=== PATIENT | male | born 1950 | race Caucasian/White ===

== ENCOUNTER 2017-02-11 10:41 | Emergency (ER) | payer MEDICARE, OTHER ==
[2017-02-11 10:46] VITALS: TEMP 97.5; BMI 30.7
--- NOTE | 2017-02-11 11:42 | PDOC ---
History of Present Illness - General Chief Complaint: Pain Stated Complaint: LT SIDE PAIN Time Seen by Provider: 02/11/17 11:42 - History of Present Illness Initial Comments: 66 year old male with CAD (recent stent placement in 07/2016 at [facility] on ASA and Plavix) sent from Dr. Olivarez's office for further evaluation of possible left flank bruising concerning for internal hemorrhage. The patient's primary complaint is of some slight back pain on the left side that he occasionally feels slightly more posterior. The pain began after rising from a seated position a few weeks prior. The pain is non radiating and worsens with position change or turning to his left. He admits to relief with Aleve. At his visit with Dr. Olivarez today he was noted to have some possible bruising to the left flank which raised concern for retroperitoneal bleeding and so he was referred to the emergency department. He does admit to some "ants crawling" sensation in his chest that is not exertional, pleuritic, radiating, copresenting with sob, or copresenting with diaphoresis. 02/11/17 15:48 Past History - Past Medical History Allergies/Adverse Reactions: Allergies Allergy/AdvReac Type Severity Reaction Status Date / Time No Known Allergies Allergy Verified 02/11/17 10:43 Home Medications: Ambulatory Orders Aspirin [ASA -] 81 mg PO DAILY 02/11/17 Clopidogrel Bisulfate [Plavix -] 75 mg PO DAILY 02/11/17 Tamsulosin HCl 0.4 mg PO DAILY 02/11/17 Asthma: No Diabetes: No HTN: No - Surgical History Cardiac Surgery: Yes - Suicide/Smoking/Psychosocial Hx Smoking History: Never smoked Hx Alcohol Use: No Substance Use Type: None Review of Systems - Review of Systems Constitutional: No: Chills, Diaphoresis, Fever, Loss of Appetite HEENTM: No: Blurred Vision Respiratory: No: Shortness of Breath Cardiac (ROS): No: Chest Pain, Irregular Heart Rate ABD/GI: No: Constipated, Diarrhea, Nausea, Vomiting : No: Burning, Dysuria, Discharge Musculoskeletal: Yes: Back Pain Neurological: No: Headache, Numbness *Physical Exam - Vital Signs Last Vital Signs Temp Pulse Resp BP Pulse Ox 97.5 F L 58 L 18 136/86 99 02/11/17 10:44 02/11/17 10:44 02/11/17 10:44 02/11/17 10:44 02/11/17 10:44 - Physical Exam General Appearance: Yes: Nourished, Appropriately Dressed. No: Apparent Distress HEENT: positive: EOMI, Normal Voice Neck: positive: Trachea midline, Normal Thyroid, Supple. negative: Tender, Rigid Respiratory/Chest: positive: Lungs Clear, Normal Breath Sounds. negative: Chest Tender, Respiratory Distress, Accessory Muscle Use Cardiovascular: positive: Regular Rhythm, Regular Rate, S1, S2. negative: Murmur Gastrointestinal/Abdominal: positive: Normal Bowel Sounds, Flat, Soft. negative : Tender Musculoskeletal: positive: Normal Inspection Extremity: positive: Normal Capillary Refill, Normal Inspection, Normal Range of Motion Integumentary: positive: Dry, Warm, Ecchymosis (Two small healing very faint echymosses on his anterior superior abdomen.). negative: Normal Color Neurologic: positive: pen maker II-XII NML intact, Fully Oriented, Alert, Normal Mood/ Affect, Normal Response, Motor Strength 5/5 Heart Score/ECG Review - ECG Intrepretation Comment:: Sinus Gaurang at 52 beats per minute without previous ekg for comparison. 02/12/17 18:16 ED Treatment Course - LABORATORY CBC & Chemistry Diagram: 02/11/17 12:10 02/11/17 12:10 Medical Decision Making - Medical Decision Making 66 year old male with nonspecific left flank pain complaint without urinary symptoms and benign abdominal exam. Patient was sent for concern for intrabdominal bleed given he was on dual antiplatelet therapy. EKG, troponins, and abdominal CTA do not show any bleed or vascular pathology (i.e. anyeurism or dissection) so this is most likely a musculoskeletal pathology. Pain improved on high dose Tylenol. 02/12/17 18:16 *DC/Admit/Observation/Transfer Diagnosis at time of Disposition: Back strain Qualifiers: Encounter type: initial encounter Qualified Code(s): S39.012A - Strain of muscle, fascia and tendon of lower back, initial encounter CAD (coronary artery disease) Qualifiers: Coronary Disease-Associated Artery/Lesion type: unspecified vessel or lesion type [place] vs. transplanted heart: [place] heart Associated angina: without angina Qualified Code(s): I25.10 - Atherosclerotic heart disease of [place] coronary artery without angina pectoris - Discharge Dispostion Disposition: HOME Condition at time of disposition: Stable - Referrals Referrals: Gabino Olivarez MD [Staff Physician] - Rupesh Stratton MD [Staff Physician] - Isma Cartagena [Primary Care Provider] - - Patient Instructions Printed Discharge Instructions: DI for Back Strain or Sprain Additional Instructions: Activity as tolerated, avoid heavy lifting and bedrest. Stay hydrated. Tylenol 1000 mg every 8 hours as needed for pain. Blood tests and a CT scan performed today showed no acute abnormalities. We spoke to Dr. Stratton and you should follow up in the office regarding your chest complaints. Call today to schedule an appointment as soon as possible, they are expecting to see you. Continue your medications as previously prescribed by your physician. You should follow up with your primary doctor and Dr. Olivarez as soon as possible regarding today's emergency department visit. Return to the emergency department for any new or concerning symptoms, particularly persistent or worsening chest pain or shortness of breath, increased bruising or abdominal pain, intolerable back pain or leg weakness or bowel/bladder issues.
[2017-02-11 12:18] LABS: BASOPHIL 0.6 % (0-2.0); EOSINOPHIL 2.2 % (0-4.5); MCH 30.8 pg (25.7-33.7); MCHC 34.9 g/dl (32.0-35.9); MEAN CELL VOLUME 88.4 fl (80-96); MEAN PLT VOLUME 9.2 fl (7.5-11.1); PLATELET COUNT 150 K/MM3 (134-434); RDW 13.3 % (11.9-15.9); WHITE BLOOD COUNT 6.3 K/mm3 (4.0-10.0)
[2017-02-11 12:44] LABS: INR 0.98 (0.82-1.09); PROTHROMBIN TIME (PATIENT) 11.1 SEC (9.98-11.88)
[2017-02-11 12:52] LABS: ALBUMIN 4.2 g/dl (3.4-5.0); ANION GAP 5 (8-16); BILIRUBIN,TOTAL 0.5 mg/dL (0.2-1.0); CALCIUM 8.8 mg/dL (8.5-10.1); CO2 30 mmol/L (21-32); CPK 99 IU/L (39-308); CREATININE 0.7 mg/dL (0.7-1.3); GLUCOSE,RANDOM 90 mg/dL (74-106); MAGNESIUM 2.6 mg/dL (1.8-2.4); SGOT/AST 18 U/L (15-37); SGPT/ALT 31 U/L (12-78)
[2017-02-11 12:55] LABS: ALK PHOS 124 U/L (45-117); TROPONIN I < 0.02 ng/ml (0.00-0.05)
--- NOTE | 2017-02-11 14:01 | PDOC ---
Attending Attestation - Resident Resident Name: TawanaDonovan - ED Attending Attestation I have performed the following: I have examined & evaluated the patient, The case was reviewed & discussed with the resident, I agree w/resident's findings & plan, Exceptions are as noted - HPI HPI: 02/11/17 13:56 66-year-old male with cardiac history on aspirin and Plavix sent from Dr. Olivarez's office for further evaluation of possible left flank bruising. Patient states he was getting up from a seated position a few weeks ago, felt a twinge in his back, and since then has had some discomfort in his left mid back region worse with positional changes, not associated with any GI or pathology. He was taking Aleve with relief, was seen by Dr. Olivarez today and was noted to have some possible bruising to the left flank which raised concern for retroperitoneal bleeding and so he was referred to the emergency department. Patient denies any lightheadedness or syncope, denies any bloody stool or urine , feels quite well. On review of systems, he does note some nonspecific "ants crawling" sensation in his chest, not associated with exertion or SOB. s/p cath with stent placement in July. currently otherwise feels well, asx at the moment. - Physicial Exam PE: 02/11/17 13:59 Vital signs normal, hemodynamically stable. Exam as noted and normal, no bruising appreciated, slight left mid back/CVA discomfort to palpation, abdomen is otherwise benign. Neurologically intact Regular rate, no murmurs, lungs clear - Medical Decision Making 02/11/17 14:00 Patient seen and evaluated with the resident. I agree with the overall evaluation, assessment, and management with the following summary of visit: 66-year-old male with cardiac history on aspirin and Plavix sent by Dr. Olivarez for further evaluation of possible left back bruising, though hemodynamically stable without significant history of trauma. Low suspicion for GI or pathology, we'll rule out any soft tissue hematoma or retroperitoneal bleeding. Patient with nonspecific cardiopulmonary complaints, atypical for ACS but recently status post stents. We'll do cardiac workup with EKG and troponin and chest x-ray, discuss disposition with patient's renderer. CT of the abdomen and pelvis with contrast to rule out any soft tissue or retroperitoneal bleeding Reassess 02/11/17 15:46 labs wnl, trop negative. CTAP without acute pathology. As outlined, presentation seemed more consistent with muscle strain, neuro intact. Will discuss vague chest sxs with Dr. Carlos, then dispo accordingly. 02/11/17 15:[address] Stratton, who knows the patient. pt had L main occlusion. Agrees that with nonspecific sxs and negative workup, can f/u in office. Pt can call and schedule an appt this week. CTAP without acute pathology, consistent with our clinical suspicion. Likely muscle strain, agrees with d/c plan. Discharge Disposition - Diagnosis Back strain Qualifiers: Encounter type: initial encounter Qualified Code(s): S39.012A - Strain of muscle, fascia and tendon of lower back, initial encounter; S39.012A - Strain of muscle, fascia and tendon of lower back, initial encounter Coronary artery disease Qualifiers: Coronary Disease-Associated Artery/Lesion type: unspecified vessel or lesion type [place] vs. transplanted heart: [place] heart Associated angina: without angina Qualified Code(s): I25.10 - Atherosclerotic heart disease of [place] coronary artery without angina pectoris; I25.10 - Atherosclerotic heart disease of [place] coronary artery without angina pectoris; I25.10 - Atherosclerotic heart disease of [place] coronary artery without angina pectoris - Discharge Dispostion Disposition: HOME Condition at time of disposition: Stable - Referrals Referrals: Isma Cartagena [Primary Care Provider] - Rupesh Stratton MD [Staff Physician] - Gabino Olivarez MD [Staff Physician] - - Patient Instructions Printed Discharge Instructions: DI for Back Strain or Sprain Additional Instructions: Activity as tolerated, avoid heavy lifting and bedrest. Stay hydrated. Tylenol 1000 mg every 8 hours as needed for pain. Blood tests and a CT scan performed today showed no acute abnormalities. We spoke to Dr. Stratton and you should follow up in the office regarding your chest complaints. Call today to schedule an appointment as soon as possible, they are expecting to see you. Continue your medications as previously prescribed by your physician. You should follow up with your primary doctor and Dr. Olivarez as soon as possible regarding today's emergency department visit. Return to the emergency department for any new or concerning symptoms, particularly persistent or worsening chest pain or shortness of breath, increased bruising or abdominal pain, intolerable back pain or leg weakness or bowel/bladder issues. Heart Score/ECG Review #1 ECG reviewed & interpreted by me at: 12:10 General ECG Interpretation: Sinus Rhythm, Normal Rate (52), Normal Intervals ( qtc 386), No acute ischemic changes
--- NOTE | 2017-02-11 14:38 | EKG ---
Test Reason : Blood Pressure : / mmHG Vent. Rate : 052 BPM Atrial Rate : 052 BPM P-R Int : 180 ms QRS Dur : 098 ms QT Int : 416 ms P-R-T Axes : 030 030 044 degrees QTc Int : 386 ms SINUS BRADYCARDIA OTHERWISE NORMAL ECG NO PREVIOUS ECGS AVAILABLE Confirmed by OFELIA SAUNDERS MD ([id number]) on 02/11/2017 2:37:59 PM Referred By: Confirmed By:OFELIA SAUNDERS MD
[2017-02-11 16:18] VITALS: BP 145/67; PULSE 60
== END 2017-02-11 16:20 | disposition home or self-care (01) ==
LOC: JER 10:41
DX: S39.012A Strain of muscle, fascia and tendon of lower back, initial encounter (principal); I25.10 Atherosclerotic heart disease of native coronary artery without angina pectoris; Z95.5 Presence of coronary angioplasty implant and graft; Z79.01 Long term (current) use of anticoagulants; Z79.82 Long term (current) use of aspirin; X50.0XXA Overexertion from strenuous movement or load, initial encounter; X50.9XXA Other and unspecified overexertion or strenuous movements or postures, initial encounter; Y93.89 Activity, other specified; Y92.89 Other specified places as the place of occurrence of the external cause; Y99.8 Other external cause status
CPT/HCPCS: 36415; 71020-TC; 74174-TC; 80053; 82550; 83735; 84484; 85025; 85610; 86850; 86900; 86901; 93005; 93010; 99282-25

== ENCOUNTER 2017-02-25 11:12 | Emergency (ER) | payer MEDICARE, OTHER ==
[2017-02-25 11:16] VITALS: BP 122/70; PULSE 100; TEMP 97.2; BMI 30.9
[2017-02-25] MEDS ORDERED: TETRACAINE 0.5% OPHTH SOLN 2 ML BOTTLE ONE (11:57)
[2017-02-25] MEDS ORDERED: ERYTHROMYCIN 0.5% OPHTHALMIC OINTMENT 3.5 GM TUBE OS ONE (12:11)
[2017-02-25] MEDS ORDERED: ERYTHROMYCIN 0.5% OPHTHALMIC OINTMENT 3.5 GM TUBE ONE (12:14)
--- NOTE | 2017-02-25 12:24 | PDOC ---
History of Present Illness - General Chief Complaint: Eye Problem Stated Complaint: EYE PROBLEM Time Seen by Provider: 02/25/17 11:49 History Source: Patient Exam Limitations: No Limitations - History of Present Illness Initial Comments: 02/25/17 12:23 66 yr male with c/o left eye redness tearing and itching for 2 days Pt denies injury to the eye , no vision changes. Pt has discharge from the eye. Pt states he felt something get in his eye for 2 days. 02/25/17 16:03 Past History - Past Medical History Allergies/Adverse Reactions: Allergies Allergy/AdvReac Type Severity Reaction Status Date / Time No Known Allergies Allergy Verified 02/25/17 11:13 Home Medications: Ambulatory Orders Aspirin [ASA -] 81 mg PO DAILY 02/11/17 Clopidogrel Bisulfate [Plavix -] 75 mg PO DAILY 02/11/17 Tamsulosin HCl 0.4 mg PO DAILY 02/11/17 Asthma: No Cardiac Disorders: Yes COPD: No Diabetes: No HTN: No - Surgical History Cardiac Surgery: Yes (stent) - Suicide/Smoking/Psychosocial Hx Smoking History: Never smoked Information on smoking cessation initiated: No Hx Alcohol Use: No Substance Use Type: None Review of Systems - Review of Systems Able to Perform ROS?: Yes Is the patient limited Polish proficient: Yes HEENTM: Yes: Symptoms Reported, See HPI *Physical Exam - Vital Signs Last Vital Signs Temp Pulse Resp BP Pulse Ox 97.2 F L 100 H 18 122/70 100 02/25/17 11:13 02/25/17 11:13 02/25/17 11:13 02/25/17 11:13 02/25/17 11:13 - Physical Exam General Appearance: Yes: Nourished, Appropriately Dressed HEENT: positive: EOMI, BEATRIZ, Normal ENT Inspection, TMs Normal, Pharynx Normal, Other (left eye with redness to conjunctiva, tearing with discharge ) Cardiovascular: positive: Regular Rhythm, Regular Rate Musculoskeletal: positive: Normal Inspection Extremity: positive: Normal Inspection Integumentary: positive: Normal Color, Dry, Warm Neurologic: positive: Fully Oriented, Alert, Normal Mood/Affect, Normal Response , Motor Strength 5/5 Procedures - Eye Procedure Alcaine Drops Administered: Yes Antibiotic Oinment/Drps Admin: left eye (erythromycin ointment placed to left eye) Progress: 02/25/17 12:26 pos fluroscein uptake left eye ED Treatment Course - Medications Given in the ED: ED Medications Discontinued Medications Generic Name Dose Route Start Last Admin Trade Name Ehsan SWANSON Reason Stop Dose Admin Erythromycin 1 applic 02/25/17 12:11 02/25/17 12:16 Erythromycin 0.5% Eye Ointment OS 02/25/17 12:12 1 applic ONCE ONE Administration Medical Decision Making - Medical Decision Making 02/25/17 12:25 cc: eye left with itching discharge red conjunctiva tearing corneal abrasion noted will place erythromycin eye ointment now spoke with the opthomologist and I have made a follow up appointment tomorrow at 9am. 02/25/17 12:26 02/25/17 16:05 *DC/Admit/Observation/Transfer Diagnosis at time of Disposition: Conjunctivitis Qualifiers: Conjunctivitis type: acute Acute conjunctivitis type: unspecified Laterality: left Qualified Code(s): H10.32 - Unspecified acute conjunctivitis, left eye Corneal abrasion, left Qualifiers: Encounter type: initial encounter Qualified Code(s): S05.02XA - Injury of conjunctiva and corneal abrasion without foreign body, left eye, initial encounter - Discharge Dispostion Disposition: HOME Condition at time of disposition: Good - Referrals Referrals: Zhao Cartagena MD [Primary Care Provider] - Hua Villa MD [Staff Physician] - - Patient Instructions Additional Instructions: please follow with at 9am tomorrow in his office at the address listed below. apply the eye ointment four times a day until you get to see the eye doctor take tylenol as needed for any pain avoid reading, bright light - Post Discharge Activity
== END 2017-02-25 12:40 | disposition home or self-care (01) ==
LOC: JERFT 11:12
DX: S05.02XA Injury of conjunctiva and corneal abrasion without foreign body, left eye, initial encounter (principal); H10.32 Unspecified acute conjunctivitis, left eye; X58.XXXA Exposure to other specified factors, initial encounter; Y93.89 Activity, other specified; Y92.89 Other specified places as the place of occurrence of the external cause; Y99.8 Other external cause status; Z95.5 Presence of coronary angioplasty implant and graft; Z79.01 Long term (current) use of anticoagulants; Z79.82 Long term (current) use of aspirin
CPT/HCPCS: 99281-25